=== PATIENT | male | born 2000 | race Two or more races ===

== ENCOUNTER 2022-01-20 20:59 | Emergency (ER) | payer MEDICAID, OTHER ==
[~2022-01-20] VITALS: Ht 154.9 cm; Wt 67.8 kg
[2022-01-20 21:33] VITALS: BP 146/86
== END 2022-01-21 03:32 | disposition left against medical advice (07) ==
LOC: ER 20:59
DX: R11.2 Nausea with vomiting, unspecified (principal); Z53.21 Procedure and treatment not carried out due to patient leaving prior to being seen by health care provider